=== PATIENT | male | born 1940 | race Caucasian/White ===

== ENCOUNTER 2017-12-14 14:05 | Outpatient (CLI) | payer MEDICARE, OTHER ==
--- NOTE | 2017-12-14 15:09 | RAD ---
CHEST TWO VIEWS: History: Congestive heart failure. Comparison: 06-27-06 FINDINGS: Two views chest. Pleural and parenchymal changes of the right lung base which obscure the right hemid iaphragm and right heart border. Small amount of left sided pleural fluid. Pulmonary vessels are prom inent. Heart appears enlarged. There is no pneumothorax. IMPRESSION: 1. Congestive heart failure. 2. Pleural and parenchymal changes in the right lung base may represent superimposed infiltrate. Cont inued surveillance is recommended. POS: [facility]CO
== END 2017-12-14 14:06 | disposition home or self-care (01) ==
LOC: RAD-FRANK 14:05
PROVIDERS: ATTEND Nurse Practitioner Family
DX: I50.9 Heart failure, unspecified (principal)
CPT/HCPCS: 71046

== ENCOUNTER 2017-12-17 13:54 | Inpatient (IN) | payer MEDICARE ==
[2017-12-17 14:44] LABS: #Eosinphils 0.4 thou/uL (0.0-0.7); #Lymphocytes 3.5 thou/uL (1.20-3.40); #Neutrophils 7.3 thou/uL (1.40-6.50); %Basophils 0.4 % (0.0-1.0); %Eosinophils 3.1 % (0.0-10.0); %Lymphocytes 28.4 % (21.0-51.0); %Monocytes 8.4 % (0.0-10.0); %Neutrophils 59.6 % (42.0-75.0); Hemoglobin 12.3 g/dL (14.0-18.0); Mean Corpuscular Hemoglobin 29.7 pg (27.0-31.0); Mean Corpuscular Volume 87.4 fl (80.0-94.0); Mean Platelet Volume 7.3 fL (7.4-10.4); Platelet Count 258 thou/uL (130-400); RBC Distribution Width 13.5 % (11.5-14.5); Red Blood Cell (RBC) Count 4.14 mill/uL (4.70-6.10); White Blood Cell (WBC) Count 12.2 thou/uL (4.8-10.8)
[2017-12-17 15:07] LABS: ALT (SGPT) 12 U/L (8-55); AST (SGOT) 15 U/L (5-34); Albumin 2.6 g/dL (3.4-4.8); Alkaline Phosphatase 136 U/L (40-150); Anion Gap 10 mmol/L (10-20); BUN (Urea Nitrogen) 29 mg/dL (8.4-25.7); Bilirubin, Total 0.3 mg/dL (0.2-1.2); CK (CPK) 87 U/L (30-200); Calc. Creatinine Clearance 0 mL/min (70-130); Carbon Dioxide 24 mmol/L (23-31); Chloride 108 mmol/L (98-107); Estimated GFR-MDRD 33; Globulin 2.9 g/dL (2.4-3.5); Glucose 128 mg/dL (83-110); Potassium 4.2 mmol/L (3.5-5.1); Protein, Total 5.5 g/dL (5.8-8.1); Sodium 138 mmol/L (136-145)
[2017-12-17 15:10] LABS: CKMB 5.2 ng/mL (0-6.6); Troponin I 0.049 ng/mL (< 0.028)
--- NOTE | 2017-12-17 15:22 | RAD ---
AP VIEW CHEST: Date: 12/17/17 INDICATION: History of dyspnea. COMPARISON: Prior exam dated 12/14/17. FINDINGS: There is worsening pulmonary vascular congestion and cardiomegaly present. The moderate right pleural effusion and right basilar air space opacity persists. Tiny left pleural effusion is present. IMPRESSION: 1. Findings suggest CHF. 2. Persistent moderate tiny left pleural effusion. 3. Persistent right basilar air space opacity. POS: TPC
[2017-12-17] MEDS ORDERED: Furosemide 20 MG/2 ML VIAL ONE (16:54)
[2017-12-17] MEDS ORDERED: Nitroglycerin 0.4 MG TAB (25 Tab Bottle) SL SCH (17:15)
[2017-12-17] MEDS ORDERED: Nitroglycerin 0.4 MG TAB (25 Tab Bottle) ONE (17:53)
[2017-12-17 18:29] LABS: Troponin I 0.048 ng/mL (< 0.028)
--- NOTE | 2017-12-17 19:00 | ULT ---
BILATERAL LOWER EXTREMITY VENOUS DOPPLER ULTRASOUND 12/17/17 HISTORY: Bilateral lower extremity edema. TECHNIQUE: Pritchard scale, color flow and spectral doppler imaging of the deep venous systems of the lower extremity is performed bilaterally. FINDINGS: There is good flow, compression and augmentation noted in the deep veins of the lower extremities on either side including the common femoral, femoral, deep femoral, popliteal, posterior tibial and grea ter saphenous veins. IMPRESSION: No evidence of DVT in either lower extremity. POS: CHECO
[2017-12-17] MEDS: Pravastatin Sodium 20 MG TAB PO SCH (20:26)
[2017-12-17] MEDS: hydrALAZINE 25 MG TAB PO SCH (20:27)
[2017-12-17] MEDS ORDERED: Carvedilol 6.25 MG TAB PO SCH (20:30)
--- NOTE | 2017-12-17 21:21 | HP ---
CHIEF COMPLAINT: Lower extremity swelling and shortness of breath. PRIMARY CARE PHYSICIAN: Jessica Aguirre. She is a Family Nurse Practitioner. HISTORY OF PRESENT ILLNESS: The patient is a very pleasant 77-year-old man with no significant past medical history, who presents to the hospital with complaints of shortness of breath and lower extrem ities swelling for the past couple of weeks. The patient stated that on Wednesday, he went to see his nurse practitioner after 3 years for significant lower extremity swelling. At that time, the patient was given a Cardiology consult and was also called in some prescriptions for his blood pressure and diuretics. However, the patient never filled those. The patient tried to get an appointment with [facility] solid waste manager; however, was unable to do so. The patient did have a follow up with his primary care doctor today, who then decided to send the patient to the ER for further evaluation. The patient do es complain of orthopnea and paroxysmal nocturnal dyspnea. The patient states that he normally does not walk very much; however, when he does walk he is able to walk about 50 feet and gets really short of breath. Denies any chest discomfort or chest pain. He has noticed his worsening lower extremity swelling. The patient does not recall ever being diagnosed with hypertension. The patient states t hat he does have occasional palpitations, which does not last very long. PAST MEDICAL HISTORY: None. PAST SURGICAL HISTORY: Denies any surgical history. FAMILY HISTORY: The patient's mother and father lived to be in the high 90s. SOCIAL HISTORY: The patient does not take any medications. ALLERGIES: The patient is allergic to SULFA. REVIEW OF SYSTEMS: Besides worsening lower extremity edema and shortness of breath. Everything else has been negative. The following complete review of systems was negative, unless otherwise mentioned in the HPI or below : Constitutional: Weight loss or gain, ability to conduct usual activities. Skin: Rash, itching. Eyes: Double vision, pain. ENT/Mouth: Nose bleeding, neck stiffness, pain, tenderness. Cardiovascular: Palpitations, dyspnea on exertion, orthopnea. Respiratory: Shortness of breath, wheezing, cough, hemoptysis, fever or night sweats. Gastrointestinal: Poor appetite, abdominal pain, heartburn, nausea, vomiting, constipation, or diarr hea. Genitourinary: Urgency, frequency, dysuria, nocturia. Musculoskeletal: Pain, swelling. Neurologic/Psychiatric: Anxiety, depression. Allergy/Immunologic: Skin rash, bleeding tendency. PHYSICAL EXAMINATION: VITAL SIGNS: Temperature of 98.9, respirations of 20, pulse of 79. Blood pressure in the 186/91. GENERAL: The patient is awake, alert, oriented x3, does not appear in distress. CARDIOVASCULAR: S1, S2 present. No murmurs, rubs or gallops. Regular rhythm. LUNGS: Clear to auscultation. No rhonchi, wheezes noted. ABDOMEN: Soft, nontender. Bowel sounds are present x2. EXTREMITIES: The patient has significant lower extremity edema, right greater than left with some er ythema noted. LABORATORY DATA: As the following WBC of 12.2, hemoglobin of 12.3, hematocrit of 36.2, platelets of 258. Chemistry: Sodium of 138, potassium of 4.2, chloride of 108, creatinine of 2.0, BUN of 29. Tr oponin of 0.049 and BNP of 881.1. ASSESSMENT AND PLAN: The patient is a very pleasant 77-year-old male who initially presented to the hospital with shortness of breath and lower extremity swelling. 1. Lower extremity swelling and shortness of breath, most likely could be possible to congestive hea rt failure, unclear whether systolic versus diastolic. However, given his high blood pressure, most likely to be diastolic dysfunction related. We will get an echocardiogram. We will also check TSH. We will trend his troponins. No significant changes on his EKG, just indicated some incomplete righ t bundle branch block. 2. Hypertension urgency. We will start the patient on a low dose Coreg and also hydralazine. The p atient also currently is on diuretics 40 mg of Lasix b.i.d. 3. Acute kidney injury, unknown patient's baseline. The patient did say that he had some lab drawn on Wednesday; however, I am unable to review the results. We will continue to monitor. I am not sure if this is his new baseline. 4. We will admit the patient to telemetry. 5. The patient does have bilateral pleural effusions with right greater than left. We will continue to monitor for now.
[2017-12-17 21:25] LABS: Troponin I 0.055 ng/mL (< 0.028)
[2017-12-17 22:49] VITALS: BMI 33.1
[2017-12-17 22:59] LABS: Bilirubin Negative (Negative); Blood, Urine Trace (Negative); Clarity CLEAR (Clear); Glucose, Urine (Dipstick) 100 mg/dL (Negative); Leukocyte Negative (Negative); Nitrite Negative (Negative); Protein, Urine (Dipstick) 300 mg/dL (Neg-Trace); Specific Gravity, Urine 1.011 (1.002-1.036); Urobilinogen 0.2 mg/dL (0.2-1.0)
[2017-12-17 23:00] LABS: Bacteria/HPF None Seen HPF (None Seen); Hyaline Casts/LPF 0-3 HYALINE CAST LPF (0-3 Hyaline); Squamous Epithelial None Seen HPF (0-3); WBC/HPF 0-3 HPF (0-3)
[2017-12-18 05:29] LABS: Hemoglobin A1c 4.9 % (4.0-6.0)
[2017-12-18] MEDS ORDERED: Furosemide 40 MG/4 ML VIAL SLOW IVP SCH (06:00)
[2017-12-18] MEDS ORDERED: Carvedilol 6.25 MG TAB PO SCH (08:00)
[2017-12-18] MEDS: hydrALAZINE 25 MG TAB PO SCH ×2 (08:43→20:48)
[2017-12-18 12:25] LABS: Anion Gap 11 mmol/L (10-20); BUN (Urea Nitrogen) 31 mg/dL (8.4-25.7); Calc. Creatinine Clearance 42 mL/min (70-130); Calcium 7.8 mg/dL (7.8-10.44); Carbon Dioxide 24 mmol/L (23-31); Chloride 109 mmol/L (98-107); Estimated GFR-MDRD 32; Glucose 124 mg/dL (83-110); Potassium 3.8 mmol/L (3.5-5.1); Sodium 140 mmol/L (136-145)
--- NOTE | 2017-12-18 13:36 | PDOC.PN ---
- Subjective Encounter Start Date: 12/18/17 Encounter Start Time: 11:30 Subjective: pt up in bed no compalins - Objective Vital Signs & Weight: Vital Signs (12 hours) Temp Pulse Pulse Pulse Resp BP BP 12/18/17 12:43 65 64 118/58 L 12/18/17 12:19 98.1 F 68 18 12/18/17 08:43 73 169/74 H 12/18/17 08:42 169/74 H 12/18/17 08:00 99.0 F 73 16 12/18/17 04:00 96.6 F L 70 20 BP BP Pulse Ox Pulse Ox Pulse Ox 12/18/17 12:43 113/56 L 95 95 12/18/17 12:19 129/61 95 12/18/17 08:43 12/18/17 08:42 12/18/17 08:00 97 12/18/17 04:00 136/60 96 Weight Weight 217 lb 9.6 oz I&O: 12/17/17 12/18/17 12/19/17 06:59 06:59 07:59 Intake Total 360 Output Total 1100 Balance -740 Result Diagrams: 12/17/17 14:40 12/18/17 11:24 Phys Exam - Physical Examination HEENT: PERRLA, moist MMs Neck: no nodes Respiratory: no wheezing Cardiovascular: RRR, no significant murmur Gastrointestinal: soft, non-tender, no distention Musculoskeletal: edema present (improved since yestarday) Neurological: non-focal Dx/Plan - Plan * . 1) sob: possible chf, echo pending, cardiology consulted, continue lasix 2) elevated trops: no significant ekg changes possible demand pt has not seen a physician for 3 yr 3) htn: uncontrolled medication started 4) ambrose unknown baseline. will decrease Lasix for daily Review of Systems - Review of Systems ENT: negative: Ear Pain, Ear Discharge, Nose Pain, Nose Discharge, Nose Congestion, Mouth Pain, Mouth Swelling, Throat Pain, Throat Swelling, Other Respiratory: negative: Cough, Dry, Shortness of Breath, Hemoptysis, SOB with Excertion, Pleuritic Pain, Sputum, Wheezing Cardiovascular: negative: chest pain, palpitations, orthopnea, paroxysmal nocturnal dyspnea, edema, light headedness, other Gastrointestinal: negative: Nausea, Vomiting, Abdominal Pain, Diarrhea, Constipation, Melena, Hematochezia, Other Genitourinary: negative: Dysuria, Frequency, Incontinence, Hematuria, Retention , Other - Medications/Allergies Allergies/Adverse Reactions: Allergies Allergy/AdvReac Type Severity Reaction Status Date / Time Sulfa (Sulfonamide Allergy Verified 12/17/17 16:59 Antibiotics) Medications: Current Medications Aspirin (Aspirin Chewable) 81 mg PO DAILY [facility] Last Admin: 12/18/17 08:43 Dose: 81 mg Carvedilol (Coreg) 25 mg PO BID-[facility] Furosemide (Lasix) 40 mg SLOW IVP DAILY [facility] Hydralazine HCl (Apresoline) 75 mg PO BID [facility] Last Admin: 12/18/17 08:43 Dose: 75 mg Pravastatin Sodium (Pravachol) 20 mg PO HS [facility] Last Admin: 12/17/17 20:26 Dose: 20 mg Sodium Chloride (Flush - Normal Saline) 10 ml IVF Q12HR [facility] Sodium Chloride (Flush - Normal Saline) 10 ml IVF PRN PRN PRN Reason: Saline Flush
--- NOTE | 2017-12-18 14:28 | CON ---
DATE OF CONSULTATION: 12/18/2017 REASON FOR CONSULTATION: Shortness of breath and lower extremity edema. HISTORY OF PRESENT ILLNESS: Mr. Menendez is a very pleasant 77-year-old gentleman with no significant past medical history, recently states over the last several weeks he has had increasing lower extrem ity edema. He has also complained of shortness of breath in addition to PND and orthopnea. No recen t illness. No cardiac risk factors. He states he has been healthy. PAST MEDICAL HISTORY: None. PAST SURGICAL HISTORY: None. ALLERGIES: SULFA. MEDICATIONS: None. SOCIAL HISTORY: No current tobacco or alcohol use. He is currently . He has 2 children. REVIEW OF SYSTEMS: Ten point systems reviewed and as above, otherwise negative. PHYSICAL EXAMINATION: VITAL SIGNS: Blood pressure 113/56, pulse 60, temperature 98.1. GENERAL: Patient is a pleasant male who is in no acute distress. The patient appears his stated age . NEUROLOGIC: The patient is alert and oriented times 3 with no focal neurologic deficits. HEENT: Sclerae without icterus. Mouth has moist mucous membranes with normal pallor. NECK: No JVD. Carotid upstroke brisk. No bruits bilaterally. LUNGS: Mild crackles noted bilaterally. BACK: No scoliosis or kyphosis. CARDIAC: Regular rate and rhythm with normal S1 and S2. No S3 or S4 noted. No significant rubs, murmurs, thrills, or gallops noted throughout the precordium. PMI is not displaced. There is no parasternal heave. ABDOMEN: Soft, nontender, nondistended. No peritoneal signs present. No hepatosplenomegaly. No abnormal striae. EXTREMITIES: 2+ femoral and 2+ dorsalis pedis pulses. No cyanosis, clubbing, or edema. SKIN: No gross abnormalities. PERTINENT LABORATORY DATA: Hemoglobin 12.3. Peak troponin 0.055. BNP of 881. IMPRESSION: 1. Shortness of breath. 2. Lower extremity edema. 3. Paroxysmal nocturnal dyspnea. RECOMMENDATIONS: Symptoms likely representing diastolic versus systolic dysfunction. He has no risk factors for early coronary disease. We would recommend echo with Doppler. We will treat with GERMAN i nhibitor therapy, beta raffi therapy, and Lasix as needed. Further recommendations pending the abo ve.
[2017-12-18] MEDS: Carvedilol 25 MG TAB PO SCH (17:30)
[2017-12-18] MEDS: Pravastatin Sodium 20 MG TAB PO SCH (20:48)
[2017-12-19 05:52] LABS: Anion Gap 12 mmol/L (10-20); BUN (Urea Nitrogen) 32 mg/dL (8.4-25.7); Calc. Creatinine Clearance 38 mL/min (70-130); Calcium 7.7 mg/dL (7.8-10.44); Carbon Dioxide 22 mmol/L (23-31); Chloride 110 mmol/L (98-107); Estimated GFR-MDRD 29; Glucose 93 mg/dL (83-110); Magnesium 1.4 mg/dL (1.6-2.6); Potassium 3.8 mmol/L (3.5-5.1); Sodium 140 mmol/L (136-145)
[2017-12-19] MEDS ORDERED: Furosemide 40 MG/4 ML VIAL SLOW IVP SCH (09:00)
[2017-12-19] MEDS: hydrALAZINE 25 MG TAB PO SCH ×2 (09:57→22:18)
[2017-12-19] MEDS: Carvedilol 25 MG TAB PO SCH ×2 (09:58→18:07)
--- NOTE | 2017-12-19 11:11 | PDOC.PN ---
- Subjective Encounter Start Date: 12/19/17 Encounter Start Time: 09:30 states he is doing fine and wants to go home. swelling improved - Objective Vital Signs & Weight: Vital Signs (12 hours) Temp Pulse Resp BP BP Pulse Ox 12/19/17 09:57 68 168/69 H 12/19/17 08:00 98.2 F 70 17 168/69 H 98 12/19/17 04:00 98.4 F 68 20 143/66 H 92 L 12/19/17 00:00 98.9 F 67 18 124/58 L 95 Weight Weight 213 lb 1.6 oz I&O: 12/18/17 12/19/17 12/20/17 05:59 06:59 06:59 Intake Total 240 Output Total Balance 240 Result Diagrams: 12/17/17 14:40 12/19/17 05:23 Phys Exam - Physical Examination Constitutional: NAD HEENT: PERRLA, moist MMs, sclera anicteric Neck: no nodes, no JVD, supple Respiratory: no wheezing, clear to auscultation bilateral Cardiovascular: RRR, no rub Gastrointestinal: soft, non-tender, no distention Musculoskeletal: pulses present, edema present Neurological: non-focal, moves all 4 limbs Psychiatric: normal affect, A&O x 3 Dx/Plan (1) Diastolic CHF Code(s): I50.30 - UNSPECIFIED DIASTOLIC (CONGESTIVE) HEART FAILURE Status: Acute (2) Acute CHF (congestive heart failure) Code(s): I50.9 - HEART FAILURE, UNSPECIFIED Status: Acute (3) Acute kidney injury Code(s): N17.9 - ACUTE KIDNEY FAILURE, UNSPECIFIED Status: Acute (4) HTN (hypertension) Code(s): I10 - ESSENTIAL (PRIMARY) HYPERTENSION Status: Acute - Plan cont current plan of care, plan discussed w/ family * . Hold lasix continue other current meds monitor creatnine in am Cardio followings already received today's dose of lasix so creatnine may not improve tmrw
[2017-12-19] MEDS: Pravastatin Sodium 20 MG TAB PO SCH (22:18)
[2017-12-20 06:14] LABS: Anion Gap 15 mmol/L (10-20); BUN (Urea Nitrogen) 36 mg/dL (8.4-25.7); Calc. Creatinine Clearance 35 mL/min (70-130); Calcium 7.7 mg/dL (7.8-10.44); Carbon Dioxide 17 mmol/L (23-31); Chloride 111 mmol/L (98-107); Estimated GFR-MDRD 26; Glucose 84 mg/dL (83-110); Potassium 5.3 mmol/L (3.5-5.1); Sodium 138 mmol/L (136-145)
[2017-12-20 07:15] LABS: #Basophils 0.1 thou/uL (0.0-0.2); #Eosinphils 0.5 thou/uL (0.0-0.7); #Lymphocytes 2.8 thou/uL (1.20-3.40); #Neutrophils 7.1 thou/uL (1.40-6.50); %Basophils 0.6 % (0.0-1.0); %Eosinophils 4.6 % (0.0-10.0); %Lymphocytes 24.7 % (21.0-51.0); %Monocytes 8.6 % (0.0-10.0); %Neutrophils 61.5 % (42.0-75.0); Mean Corpuscular HGB CONC 33.4 g/dL (32.0-36.0); Mean Corpuscular Hemoglobin 29.7 pg (27.0-31.0); Mean Corpuscular Volume 89.1 fl (80.0-94.0); Platelet Count 257 thou/uL (130-400); RBC Distribution Width 13.7 % (11.5-14.5); White Blood Cell (WBC) Count 11.5 thou/uL (4.8-10.8)
[2017-12-20 08:49] LABS: Anion Gap 12 mmol/L (10-20); BUN (Urea Nitrogen) 38 mg/dL (8.4-25.7); Calc. Creatinine Clearance 34 mL/min (70-130); Carbon Dioxide 23 mmol/L (23-31); Chloride 108 mmol/L (98-107); Estimated GFR-MDRD 25; Glucose 89 mg/dL (83-110); Magnesium 1.6 mg/dL (1.6-2.6); Sodium 139 mmol/L (136-145)
[2017-12-20] MEDS: hydrALAZINE 25 MG TAB PO SCH ×2 (09:13→21:55)
[2017-12-20] MEDS: Carvedilol 25 MG TAB PO SCH ×2 (09:14→16:31)
--- NOTE | 2017-12-20 10:29 | ULT ---
BILATERAL RENAL ULTRASOUND: DATE: 12/20/17. HISTORY: Worsening acute renal insufficiency. FINDINGS: Multiple longitudinal and transverse images of the kidneys and bladder are obtained using a multihert z curvilinear transducer. Rela-time and color flow images demonstrate both kidneys to be of normal c ontour, axis, and size. The right kidney measures 9.0 and the left kidney 9.0 cm from pole to pole. No evidence of hydronephrosis. No evidence of renal parenchymal thinning seen. The bladder is unre markable. The bladder has prevoid 3-dimensional measurements of 5.7 x 7.5 x 7.6 cm and a prevoid vol ume of 170 mL. IMPRESSION: Normal renal ultrasound without evidence of hydronephrosis. POS: [facility]CO
--- NOTE | 2017-12-20 14:04 | PDOC.PN ---
- Subjective Encounter Start Date: 12/20/17 Encounter Start Time: 11:30 Subjective: pt up in bed no complains - Objective Vital Signs & Weight: Vital Signs (12 hours) Temp Pulse Pulse Pulse Resp BP BP 12/20/17 11:51 98.3 F 64 18 12/20/17 09:13 64 142/65 H 12/20/17 08:56 63 66 142/65 H 12/20/17 08:05 98.4 F 64 18 12/20/17 07:47 98.4 F 64 20 12/20/17 04:00 98.2 F 66 20 BP BP Pulse Ox Pulse Ox Pulse Ox 12/20/17 11:51 101/47 L 96 12/20/17 09:13 12/20/17 08:56 142/62 H 96 94 L 12/20/17 08:05 142/65 H 94 L 12/20/17 07:47 94 L 12/20/17 04:00 132/60 93 L Weight Weight 215 lb 6.4 oz I&O: 12/19/17 12/20/17 12/21/17 06:59 06:59 06:59 Intake Total 770 Output Total 850 Balance -80 Result Diagrams: 12/20/17 06:44 12/20/17 08:07 Phys Exam - Physical Examination HEENT: PERRLA Neck: no nodes Respiratory: no wheezing, no rales Cardiovascular: RRR, no significant murmur Gastrointestinal: soft Musculoskeletal: edema present Neurological: non-focal Dx/Plan - Plan * . 1) sob: possible chf, diastolic heart failure, pt on bp meds. unable to start pt on GERMAN due to his worsening ambrose 2) elevated trops: no significant ekg changes possible demand pt has not seen a physician for 3 yr 3) htn: uncontrolled medication started 4) ambrose unknown baseline. worsening, lasix was discontinued yesterday. renal ultrasound no hydro noted. nephrology was consulted Review of Systems - Review of Systems Eyes: negative: Pain, Vision Change, Conjunctivae Inflammation, Eyelid Inflammation, Redness, Other ENT: negative: Ear Pain, Ear Discharge, Nose Pain, Nose Discharge, Nose Congestion, Mouth Pain, Mouth Swelling, Throat Pain, Throat Swelling, Other Respiratory: negative: Cough, Dry, Shortness of Breath, Hemoptysis, SOB with Excertion, Pleuritic Pain, Sputum, Wheezing Cardiovascular: negative: chest pain, palpitations, orthopnea, paroxysmal nocturnal dyspnea, edema, light headedness, other Gastrointestinal: negative: Nausea, Vomiting, Abdominal Pain, Diarrhea, Constipation, Melena, Hematochezia, Other Genitourinary: negative: Dysuria, Frequency, Incontinence, Hematuria, Retention , Other - Medications/Allergies Allergies/Adverse Reactions: Allergies Allergy/AdvReac Type Severity Reaction Status Date / Time Sulfa (Sulfonamide Allergy Verified 12/17/17 16:59 Antibiotics) Medications: Current Medications Aspirin (Aspirin Chewable) 81 mg PO DAILY [facility] Last Admin: 12/20/17 09:14 Dose: 81 mg Carvedilol (Coreg) 25 mg PO BID-[facility] Last Admin: 12/20/17 09:14 Dose: 25 mg Hydralazine HCl (Apresoline) 75 mg PO BID [facility] Last Admin: 12/20/17 09:13 Dose: 75 mg Pravastatin Sodium (Pravachol) 20 mg PO HS [facility] Last Admin: 12/19/17 22:18 Dose: 20 mg Sodium Chloride (Flush - Normal Saline) 10 ml IVF Q12HR [facility] Last Admin: 12/20/17 09:14 Dose: 10 ml Sodium Chloride (Flush - Normal Saline) 10 ml IVF PRN PRN PRN Reason: Saline Flush
--- NOTE | 2017-12-20 15:12 | CON ---
DATE OF CONSULTATION: 12/20/2017 NEPHROLOGY CONSULTATION REASON FOR CONSULTATION: Elevated creatinine and proteinuria. HISTORY OF PRESENT ILLNESS: This is a 77-year-old white gentleman who presented to the hospital on 0 12/17/2017 with a baseline creatinine of 2.0, which has increased to 2.5. The patient had a renal ult rasound which showed chronic CKD changes. The patient does have a history of hypertension and hyperl ipidemia. The patient complains of no other history. The patient was noted to have 300 grams of pro tein and significant edema in his legs and dyspnea. PAST MEDICAL HISTORY: None. PAST SURGICAL HISTORY: None. FAMILY HISTORY: Negative for ESRD. SOCIOECONOMIC HISTORY: No alcohol or drug use. FAMILY HISTORY: Negative for ESRD. ALLERGIES: Reviewed. REVIEW OF SYSTEMS: A 15 point review of systems was performed and was negative except for positives noted above. GENERAL: Weakness- HEAD: Headache- NECK: No swelling or lumps. NOSE: No epistaxis or discharge. EYES: No diplopia or pain. RESPIRATORY: Dyspnea- CARDIOVASCULAR: Chest pain- GASTROINTESTINAL: Nausea- /TECHNICAL SALES SUPPORT SPECIALIST: Hematuria- MUSCULOSKELETAL: No joint pain. NEUROPSYCHIATIC SYSTEMS: No suicidal ideation. No ideation. SKIN: Denies any rash or ulcer. CONSTITUTIONAL: No fever or chills. PHYSICAL EXAMINATION: GENERAL: Patient is awake, alert. VITAL SIGNS: Afebrile, pulse 64, breathing 16, blood pressure 101/47. HEAD/NECK: Normocephalic. Atraumatic. EYES: EOMI. No deformity. EARS: Clear. No ulcers. NOSE: Intact. No lesions. MOUTH: Clear. No discharge. THROAT: Clear. No exudate. LUNGS: Clear. No crackles. CARDIAC: S1, S2. No rub. ABDOMEN: Benign. BS+. GENITALIA/RECTUM: Webber absent. BACK/EXTREMITIES: Edema 3+. NEUROLOGICAL: Alert and motor intact. SKIN: Rash- Bruise- LYMPHATICS: Edema- Ulcer- LABORATORY DATA: Hemoglobin is 11, creatinine is 2.49. ASSESSMENT AND RECOMMENDATIONS: 1. Acute kidney injury most likely due to hypertensive or other glomerular etiology. I will order a random urine protein creatinine ratio and evaluate the need for any further workup. 2. Anemia, stable. 3. Hypertension, stable. 4. Medications based on glomerular filtration rate are appropriate. 5. Cardiorenal syndrome could be the etiology. I would also order a serum and urine protein electro phoresis. All the above findings were discussed with the patient and all questions were answered.
[2017-12-20] MEDS: Pravastatin Sodium 20 MG TAB PO SCH (21:55)
[2017-12-21 04:17] LABS: Creatinine, Urine 203.34 mg/dL (63-166)
[2017-12-21] MEDS: Carvedilol 25 MG TAB PO SCH ×2 (09:11→18:48)
[2017-12-21] MEDS: hydrALAZINE 25 MG TAB PO SCH (09:12)
[2017-12-21 09:39] LABS: Anion Gap 14 mmol/L (10-20); BUN (Urea Nitrogen) 41 mg/dL (8.4-25.7); Calc. Creatinine Clearance 31 mL/min (70-130); Calcium 8.1 mg/dL (7.8-10.44); Carbon Dioxide 22 mmol/L (23-31); Chloride 109 mmol/L (98-107); Estimated GFR-MDRD 23; Glucose 98 mg/dL (83-110); Potassium 4.2 mmol/L (3.5-5.1); Sodium 141 mmol/L (136-145)
--- NOTE | 2017-12-21 09:39 | PRG ---
DATE OF SERVICE: 12/21/2017 SUBJECTIVE: A 77-year-old gentleman being seen for acute kidney injury. The patient denies any naus ea, vomiting, or chest pain. PHYSICAL EXAMINATION: GENERAL: Patient is awake, alert. VITAL SIGNS: Afebrile, pulse 94, breathing 16, blood pressure is 157/67. HEAD/NECK: Normocephalic. Atraumatic. EYES: EOMI. No deformity. EARS: Clear. No ulcers. NOSE: Intact. No lesions. MOUTH: Clear. No discharge. THROAT: Clear. No exudate. LUNGS: Clear. No crackles. CARDIAC: S1, S2. No rub. ABDOMEN: Benign. BS+. GENITALIA/RECTUM: Webber absent. BACK/EXTREMITIES: Edema 3+ Ulcer- NEUROLOGICAL: Alert and motor intact. SKIN: Rash- Bruise- LYMPHATICS: Edema- Ulcer- LABORATORY DATA: Show 3 grams of protein. Potassium is 4, creatinine is 2.4. Today's labs are pend ing. ASSESSMENT AND RECOMMENDATIONS: 1. Chronic kidney disease stage 3, with non-nephrotic range proteinuria. SPEP and UPEP are pending. We will evaluate renal function and consider renal biopsy if indicated. 2. Metabolic acidosis, improved. 3. Hyperkalemia, improved. Today's labs are pending. We will follow up. 4. Anemia is stable.
[2017-12-21 12:14] VITALS: BP 107/48; TEMP 98
[2017-12-21 16:14] LABS: Complement-C4 30.9 mg/dL (15-53)
[2017-12-21 16:34] LABS: HBSAB Concentration 0.24 mIU/mL; HBSAg Index 0.19 S/CO (0-0.99); Hep B Surf AB Non-Reactive (NonReactive); Hep B Surf Ag Non-Reactive S/CO (NonReactive); Hep C IgG Ab Non-Reactive (NonReactive); Hep C Index 0.23 S/CO (0-0.79)
--- NOTE | 2017-12-21 17:38 | PDOC.PN ---
- Subjective Encounter Start Date: 12/21/17 Encounter Start Time: 10:45 - Objective Vital Signs & Weight: Vital Signs (12 hours) Temp Pulse Pulse Pulse Resp BP BP 12/21/17 12:13 98.0 F 65 18 12/21/17 11:39 62 64 107/48 L 12/21/17 09:14 97.9 F 65 16 12/21/17 09:12 65 157/67 H 12/21/17 08:00 97.9 F 65 16 BP BP Pulse Ox Pulse Ox Pulse Ox 12/21/17 12:13 107/48 L 95 12/21/17 11:39 136/61 97 96 12/21/17 09:14 157/67 H 94 L 12/21/17 09:12 12/21/17 08:00 94 L Weight Weight 216 lb I&O: 12/20/17 12/21/17 12/22/17 06:59 06:59 06:59 Intake Total 770 560 Output Total 850 400 Balance -80 160 Result Diagrams: 12/20/17 06:44 12/21/17 08:59 Phys Exam - Physical Examination HEENT: PERRLA, moist MMs Neck: no nodes Respiratory: no wheezing, no rales Cardiovascular: RRR, no significant murmur Gastrointestinal: soft, non-tender Dx/Plan - Plan ) sob: possible chf, diastolic heart failure, pt on bp meds. unable to start pt on GERMAN due to his worsening ambrose 2) elevated trops: no significant ekg changes possible demand pt has not seen a physician for 3 yr 3) htn: uncontrolled medication started 4) amborse unknown baseline. worsening, lasix was discontinued yesterday. renal ultrasound no hydro noted. nephrology was consulted. pt's creatinine continue to worsen. spep/upep/anca ordered. will continue to monitor * . Review of Systems - Review of Systems Eyes: negative: Pain, Vision Change, Conjunctivae Inflammation, Eyelid Inflammation, Redness, Other ENT: negative: Ear Pain, Ear Discharge, Nose Pain, Nose Discharge, Nose Congestion, Mouth Pain, Mouth Swelling, Throat Pain, Throat Swelling, Other Respiratory: negative: Cough, Dry, Shortness of Breath, Hemoptysis, SOB with Excertion, Pleuritic Pain, Sputum, Wheezing Cardiovascular: negative: chest pain, palpitations, orthopnea, paroxysmal nocturnal dyspnea, edema, light headedness, other - Medications/Allergies Allergies/Adverse Reactions: Allergies Allergy/AdvReac Type Severity Reaction Status Date / Time Sulfa (Sulfonamide Allergy Verified 12/17/17 16:59 Antibiotics) Medications: Current Medications Aspirin (Aspirin Chewable) 81 mg PO DAILY [facility] Last Admin: 12/21/17 09:12 Dose: 81 mg Carvedilol (Coreg) 25 mg PO BID-[facility] Last Admin: 12/21/17 09:11 Dose: 25 mg Hydralazine HCl (Apresoline) 75 mg PO BID [facility] Last Admin: 12/21/17 09:12 Dose: 75 mg Pravastatin Sodium (Pravachol) 20 mg PO HS [facility] Last Admin: 12/20/17 21:55 Dose: 20 mg Sodium Chloride (Flush - Normal Saline) 10 ml IVF Q12HR [facility] Last Admin: 12/21/17 09:13 Dose: 10 ml Sodium Chloride (Flush - Normal Saline) 10 ml IVF PRN PRN PRN Reason: Saline Flush
[2017-12-21] MEDS ORDERED: Heparin 5,000 UNITS/ML VIAL SC SCH (21:00)
[2017-12-22 09:19] LABS: A/G Ratio 0.8 (0.7-1.7); Albumin 2.1 g/dL (2.9-4.4); Alpha 1 0.1 g/dL (0.0-0.4); Alpha 2 0.7 g/dL (0.4-1.0); Beta 0.9 g/dL (0.7-1.3); Gamma 0.8 g/dL (0.4-1.8); Globulin, Total 2.5 g/dL (2.2-3.9); M-Spike Not Observed g/dL (Not Observed)
[2017-12-22 15:18] LABS: ANA Symphony (Qualitative) Negative (Negative); dsDNA IgG Antibody 0.8 IU/mL (<10 Negative)
[2017-12-22 15:19] LABS: dsDNA IgG Antibody 0.9 IU/mL (<10 Negative)
[2017-12-23 14:24] LABS: Albumin-Ur 54.3 % (.); Alpha 1 - Ur 1.8 % (.); Alpha 2 - Ur 10.3 % (.); Beta-Ur 15.5 % (.); Gamma-Ur 18.2 % (.); M-Spike,% Not Observed % (Not Observed); Protein, Urine 685.4 mg/dL (Not Estab.)
[2017-12-23 15:29] LABS: ANCA Pattern <1:20 titer (Neg:<1:20); ANCA Total <1:20 titer (Neg:<1:20); Atypical pANCA <1:20 titer (Neg:<1:20)
== END 2017-12-21 19:15 | disposition left against medical advice (07) | DRG 291 ==
LOC: ERS 13:54 → 2NO 19:07
PROVIDERS: ADMIT Internal Medicine; ATTEND Internal Medicine
DX: I13.0 Hypertensive heart and chronic kidney disease with heart failure and stage 1 through stage 4 chronic kidney disease, or unspecified chronic kidney disease (principal); I50.31 Acute diastolic (congestive) heart failure; N17.9 Acute kidney failure, unspecified; E87.2 Acidosis; E87.5 Hyperkalemia; N18.3 Chronic kidney disease, stage 3 (moderate); I16.0 Hypertensive urgency; E78.5 Hyperlipidemia, unspecified; D63.1 Anemia in chronic kidney disease; Z91.14 Patient's other noncompliance with medication regimen
CPT/HCPCS: 36415; 71045; 71046; 76770; 80048; 80053; 80061; 81001; 82553; 82570; 83036; 83516; 83735; 83880; 84156; 84165; 84166; 84443; 84484; 85025; 86038; 86160; 86225; 86256; 86706; 86803; 87340; 93005; 93306; 93798; 93970; 96374; A4216; J1940